=== PATIENT | female | born 1990 | race Caucasian/White ===

== ENCOUNTER 2019-10-20 19:31 | Emergency (ER) | payer OTHER ==
[2019-10-20 19:38] VITALS: BP 113/70; PULSE 70; RESP 18; TEMP 98.4
[2019-10-20] MEDS ORDERED: SODIUM CHLORIDE 0.9% 1,000 ML IV ONE (20:35)
[2019-10-20 21:13] LABS: Basophils % (A) 0 %; Eosinophils # (A) 0.1 k/uL (0-0.7); Eosinophils % (A) 3 %; HCT 38.5 % (34.0-46.0); HGB 12.9 gm/dL (11.4-16.0); Lymphocytes # (A) 1.3 k/uL (1.0-4.8); Lymphocytes % (A) 40 %; MCH 29.2 pg (25.0-35.0); MCHC 33.4 g/dL (31.0-37.0); MCV 87.5 fL (80.0-100.0); Mean Platelet Volume 7.1; Monocytes # (A) 0.2 k/uL (0-1.0); Monocytes % (A) 5 %; Neutrophils # (A) 1.6 k/uL (1.3-7.7); Neutrophils % (A) 49 %; Platelet Count 150 k/uL (150-450); RDW 13.3 % (11.5-15.5); WBC 3.3 k/uL (3.8-10.6)
[2019-10-20 21:18] LABS: Appearance,Urine Clear (Clear); Bilirubin,Urine Negative (Negative); Blood,Urine Negative (Negative); Color,Urine Yellow; Glucose,Urine (UA) Negative (Negative); Ketones,Urine Negative (Negative); Leukocyte Esterase,Urine Negative (Negative); Nitrite,Urine Negative (Negative); Protein,Urine Negative (Negative); Specific Gravity,Urine 1.018 (1.001-1.035); Urobilinogen,Urine <2.0 mg/dL (<2.0)
[2019-10-20 21:28] LABS: ALT 114 U/L (9-52); AST 83 U/L (14-36); African American GFR (CKD) >90 (>60 ml/min/1.73 sqM); Albumin 4.4 g/dL (3.5-5.0); Alkaline Phosphatase 44 U/L (38-126); Anion Gap 8 mmol/L; Blood Urea Nitrogen 15 mg/dL (7-17); Calcium 9.4 mg/dL (8.4-10.2); Carbon Dioxide 29 mmol/L (22-30); Chloride 103 mmol/L (98-107); Glucose 87 mg/dL (74-99); Non-African American GFR(CKD) >90 (>60 ml/min/1.73 sqM); Potassium 3.8 mmol/L (3.5-5.1); Sodium 140 mmol/L (137-145); Total Bilirubin 0.2 mg/dL (0.2-1.3); Total Protein 7.9 g/dL (6.3-8.2)
[2019-10-20 21:45] LABS: HCG,Quantitative Serum 9593.4 mIU/mL
[2019-10-20] MEDS ORDERED: Rhogam IMMUNE GLOBULIN 1,500 UNIT/1 ML IM ONE (21:58)
--- NOTE | 2019-10-20 22:03 | US ---
EXAMINATION TYPE: Ultrasound OB <= 14 week fetus DATE OF EXAM: 10/20/2019 9:47 PM COMPARISON: NONE CLINICAL HISTORY: 29-year-old female pain. Vaginal bleeding today, pelvic cramping x 2 days; MEMBERSHIP COORDINATOR NOTES: Left Fallopian Tube /Ovary removed per patient from ectopic EXAM PERFORMED: Transabdominal (TA) FINDINGS: EXAM MEASUREMENTS: GESTATIONAL AGE / DATING Physician Established: Not yet established Dates by LMP: LMP unknown Dates by First Scan: No previous. Dates by Current Scan for: (5 weeks/6 days) EDC: 06/15/2020 MATERNAL ANATOMY Uterus: 8.8 x 7.9 x 5.5cm Right Ovary: 3.5 x 2.2 x 1.9cm Left Ovary: not seen/surgically removed per patient Post CDS / Adnexa: wnl Presence of free fluid: no Presence of corpus luteal cyst: in right ovary = 1.7 x 2.0 x 1.6cm Presence of subchorionic bleed: very small hypoechoic area right subchorionic area = 0.4 x 0.3 x 0.2c m GESTATION / SURVEY MSD: 1.5cm (5 weeks/6 days) Yolk Sac (normal less than 6mm): 4.8mm IUP: Single gestational sac with yolk sac is seen in early Date of LMP: unknown Beta HcG (if available): 9593.4 MEMBERSHIP COORDINATOR NOTES: Single gestational sac with yolk sac is seen in early ; presence of possi ble subchorionic bleed seen as very small hypoechoic area right subchorionic area = 0.4 x 0.3 x 0.2cm . IMPRESSION: 1. Early intrauterine with gestational sac and yolk sac visualized. MSD place the gestation at 5 weeks 6 days. No pole seen at this time. Current differential considerations include marivel y and failed . Recommend continued monitoring of beta hCG and ultrasound follow-up to ensure the appearance of a normal pole with cardiac activity. 2. Small 4 mm right-sided perigestational bleed. 3. A 2.0 cm corpus luteum within the right ovary. Patient reports that the left ovary was previously removed.
--- NOTE | 2019-10-20 22:23 | ED ---
General Adult HPI - General Chief complaint: Vaginal Bleeding Stated complaint: 2 months , spotting Time Seen by Provider: 10/20/19 19:50 Source: patient Mode of arrival: ambulatory Limitations: no limitations - History of Present Illness Initial comments: 29-year-old female patient who reports being 8 weeks presents to the emergency department today for evaluation of lower abdominal cramping and vaginal bleeding. Patient is currently a patient at [facility]. 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 She has been there for 9 days. Patient states that bleeding started yes terday. States today she started to have lower abdominal and low back pain. Denies any passage of blood clots. She does not have to wear a pad. She denies any hematuria, dysuria, urinary frequency, urinary urgency. She is with history of 1 miscarriages, 2 abortions, and one ectopic . She denies fever or chills. She did have a positive test has not yet had a ultrasound confirming intrauterine . She does have an appointment with her INDIVIDUAL PENSION CONSULTANT on Tuesday. Patient denies any recent rash, fever, chills, shortness breath, chest pain, nausea, vomiting, diarrhea, constipation, back pain, numbness, tingling, dizziness, weakness, headache, visual changes, or any other complaints. - Related Data Allergies Allergy/AdvReac Type Severity Reaction Status Date / Time No Known Allergies Allergy Verified 10/20/19 19:38 Review of Systems ROS Statement: Those systems with pertinent positive or pertinent negative responses have been documented in the HPI. ROS Other: All systems not noted in ROS Statement are negative. Past Medical History Additional Past Medical History / Comment(s): ectopic hx History of Any Multi-Drug Resistant Organisms: None Reported, MRSA Date of last positivie culture/infection: 2016 MDRO Source:: face Additional Past Surgical History / Comment(s): left fallopian tube removed Past Psychological History: Bipolar Smoking Status: Current every day smoker Past Alcohol Use History: None Reported Past Drug Use History: None Reported General Exam Limitations: no limitations General appearance: alert, in no apparent distress, other (This is a well- developed, well-nourished adult female patient in no acute distress. Vital signs upon presentation are temperature 98.4F, pulse 70, respirations 18, blood pressure 113/70, pulse ox 97% on room air.) Eye exam: Present: normal appearance, PERRL, EOMI. Absent: scleral icterus, conjunctival injection, periorbital swelling ENT exam: Present: normal exam, normal oropharynx, mucous membranes moist Respiratory exam: Present: normal lung sounds bilaterally. Absent: respiratory distress, wheezes, rales, rhonchi, stridor Cardiovascular Exam: Present: regular rate, normal rhythm, normal heart sounds. Absent: systolic murmur, diastolic murmur, rubs, gallop, clicks GI/Abdominal exam: Present: soft, normal bowel sounds. Absent: distended, tenderness, guarding, rebound, rigid External exam: Present: normal external exam Speculum exam: Present: vaginal bleeding (Small amount of dark red vaginal bleeding), other (Cervical os is closed) By manual exam: Absent: cervical motion tenderness, adnexal tenderness Back exam: Absent: CVA tenderness (R), CVA tenderness (L) Neurological exam: Present: alert, oriented X3, CN II-XII intact Psychiatric exam: Present: normal affect, normal mood Skin exam: Present: warm, dry, intact, normal color. Absent: rash Course Vital Signs 10/20/19 19:34 Temperature 98.4 F Pulse Rate 70 Respiratory 18 Rate Blood Pressure 113/70 O2 Sat by Pulse 97 Oximetry Medical Decision Making - Medical Decision Making 29-year-old female patient presents to the emergency department today for evaluation of lower abdominal cramping and vaginal bleeding. Patient according being approximately 8 weeks . Vaginal exam showed small amount of dark red vaginal bleeding from the cervical os. Cervical os is closed. HCG is 9000. Ultrasound shows a gestational sac and yolk sac measuring approximately 5 weeks 3 days. No current evidence for heart activity. I did discuss findings and results with the patient. This could be early versus miscarriage. She is instructed to have repeat hCG performed in 3 days, repeat ultrasound performed in 2 weeks. She has had appointment with her INDIVIDUAL PENSION CONSULTANT on Tuesday. She was Rh-, we did administer RhoGAM. She did have a negative STD check when she found out she was 2 weeks ago. Urinalysis shows no evidence for infection. She'll be discharged instructions to return immediately for any new, worsening, or concerning symptoms. - Lab Data Result diagrams: 10/20/19 20:55 10/20/19 20:55 Lab Results 10/20/19 10/20/1919 Range/Units 20:50 20:55 20:55 WBC 3.3 L (3.8-10.6) k/uL RBC 4.40 (3.80-5.40) m/uL Hgb 12.9 (11.4-16.0) gm/dL Hct 38.5 (34.0-46.0) % MCV 87.5 (80.0-100.0) fL MCH 29.2 (25.0-35.0) pg MCHC 33.4 (31.0-37.0) g/dL RDW 13.3 (11.5-15.5) % Plt Count 150 (150-450) k/uL Neutrophils % 49 % Lymphocytes % 40 % Monocytes % 5 % Eosinophils % 3 % Basophils % 0 % Neutrophils # 1.6 (1.3-7.7) k/uL Lymphocytes # 1.3 (1.0-4.8) k/uL Monocytes # 0.2 (0-1.0) k/uL Eosinophils # 0.1 (0-0.7) k/uL Basophils # 0.0 (0-0.2) k/uL Sodium 140 (137-145) mmol/L Potassium 3.8 (3.5-5.1) mmol/L Chloride 103 (98-107) mmol/L Carbon Dioxide 29 (22-30) mmol/L Anion Gap 8 mmol/L BUN 15 (7-17) mg/dL Creatinine 0.56 (0.52-1.04) mg/dL Est GFR (CKD-EPI)AfAm >90 (>60 ml/min/1.73 sqM) Est GFR (CKD-EPI)NonAf >90 (>60 ml/min/1.73 sqM) Glucose 87 (74-99) mg/dL Calcium 9.4 (8.4-10.2) mg/dL Total Bilirubin 0.2 (0.2-1.3) mg/dL AST 83 H (14-36) U/L ALT 114 H (9-52) U/L Alkaline Phosphatase 44 (38-126) U/L Total Protein 7.9 (6.3-8.2) g/dL Albumin 4.4 (3.5-5.0) g/dL HCG, Quant 9593.4 mIU/mL Urine Color Urine Appearance (Clear) Urine pH (5.0-8.0) Ur Specific Walton (1.001-1.035) Urine Protein (Negative) Urine Glucose (UA) (Negative) Urine Ketones (Negative) Urine Blood (Negative) Urine Nitrite (Negative) Urine Bilirubin (Negative) Urine Urobilinogen (<2.0) mg/dL Ur Leukocyte Esterase (Negative) Blood Type A Negative Blood Type Confirm Blood Type Recheck No Previous Record Bld Type Recheck Status CABO Indicated Antibody Screen NEGATIVE 10/20/19 10/20/19 Range/Units 20:55 21:10 WBC (3.8-10.6) k/uL RBC (3.80-5.40) m/uL Hgb (11.4-16.0) gm/dL Hct (34.0-46.0) % MCV (80.0-100.0) fL MCH (25.0-35.0) pg MCHC (31.0-37.0) g/dL RDW (11.5-15.5) % Plt Count (150-450) k/uL Neutrophils % % Lymphocytes % % Monocytes % % Eosinophils % % Basophils % % Neutrophils # (1.3-7.7) k/uL Lymphocytes # (1.0-4.8) k/uL Monocytes # (0-1.0) k/uL Eosinophils # (0-0.7) k/uL Basophils # (0-0.2) k/uL Sodium (137-145) mmol/L Potassium (3.5-5.1) mmol/L Chloride (98-107) mmol/L Carbon Dioxide (22-30) mmol/L Anion Gap mmol/L BUN (7-17) mg/dL Creatinine (0.52-1.04) mg/dL Est GFR (CKD-EPI)AfAm (>60 ml/min/1.73 sqM) Est GFR (CKD-EPI)NonAf (>60 ml/min/1.73 sqM) Glucose (74-99) mg/dL Calcium (8.4-10.2) mg/dL Total Bilirubin (0.2-1.3) mg/dL AST (14-36) U/L ALT (9-52) U/L Alkaline Phosphatase (38-126) U/L Total Protein (6.3-8.2) g/dL Albumin (3.5-5.0) g/dL HCG, Quant mIU/mL Urine Color Yellow Urine Appearance Clear (Clear) Urine pH 7.0 (5.0-8.0) Ur Specific Walton 1.018 (1.001-1.035) Urine Protein Negative (Negative) Urine Glucose (UA) Negative (Negative) Urine Ketones Negative (Negative) Urine Blood Negative (Negative) Urine Nitrite Negative (Negative) Urine Bilirubin Negative (Negative) Urine Urobilinogen <2.0 (<2.0) mg/dL Ur Leukocyte Esterase Negative (Negative) Blood Type Blood Type Confirm A Negative Blood Type Recheck Bld Type Recheck Status Antibody Screen - Radiology Data Radiology results: report reviewed Ultrasound of the fetus was obtained. Report was reviewed in its entirety. Impression by Dr. Tripathi shows early intrauterine was station L sack any exact visualized. MSD place a gestation of 5 weeks 6 days. No pulse seen at this time. Current differential considerations include early and failed . Recommend continued monitoring a beta hCG and ultrasound follow-up to ensure the appearance of a normal pole with cardiac activity. Small 4 mm right-sided. Gestational bleed. A 2.0; sodium within the right ovary. Patient reports that the left ovary was previously remote Disposition Clinical Impression: Threatened Disposition: HOME SELF-CARE Condition: Good Instructions (If sedation given, give patient instructions): Threatened Miscarriage (ED), Abdominal Pain in (ED) Additional Instructions: Increase fluids. Rest. Pelvic rest until cleared by INDIVIDUAL PENSION CONSULTANT. Follow-up with your OB for recheck this as possible. Have repeat hCG level drawn in 3 days. Have repeat ultrasound in 2 weeks. Return to the emergency department immediately for any new, worsening, or concerning symptoms. Is patient prescribed a controlled substance at d/c from ED?: No Referrals: Nonstaff,Physician [Primary Care Provider] - 1-2 days Time of Disposition: 22:23
== END 2019-10-20 22:49 | disposition home or self-care (01) ==
LOC: EC 19:31
DX: O20.0 Threatened abortion (principal); O99.331 Smoking (tobacco) complicating pregnancy, first trimester; F17.200 Nicotine dependence, unspecified, uncomplicated; Z3A.08 8 weeks gestation of pregnancy
CPT/HCPCS: 36415; 86900; 86901; 80053; 85025; 86850; 81003; 84702; 76801; 99284; 96360; 96372; J2791